=== PATIENT | female | born 1965 | race Caucasian/White ===

== ENCOUNTER 2016-10-28 11:38 | Observation (INO) ==
[2016-10-28] MEDS ORDERED: Piperacillin/Tazobactam 3.375 GM in D5% in Water (Mini-Bag+) 100 ML IVPB ONE (11:49)
[2016-10-28] MEDS ORDERED: 0.9 % Sodium Chloride 1,000 ML IVC ONE (11:49)
[2016-10-28] MEDS ORDERED: Vancomycin (wt based) 1,000 MG VIAL IV STA (11:49)
[2016-10-28] MEDS ORDERED: Vancomycin 1,750 MG in D5% in Water 500 ML IVPB ONE (11:53)
[2016-10-28] MEDS ORDERED: *HR* FentaNYL (PF) 100 MCG/2 ML VIAL IVP ONE (11:54)
--- NOTE | 2016-10-28 11:58 | Emergency Department Note ---
Disposition Clinical Impression: Cellulitis Qualifiers: Site of cellulitis: extremity Site of cellulitis of extremity: lower extremity Laterality: left Qualified Code(s): L03.116 - Cellulitis of left lower limb Disposition: Admitted As Inpatient Condition: Good Time of Disposition: 12:56 Extremity Problem HPI - General Chief complaint: ED Extremity Problem,Nontraumatic Stated complaint: LLE Seeping Swollen Inflamed Post Op Time Seen by Provider: 10/28/16 11:45 Source: patient, family Limitations: no limitations Nursing Notes Reviewed: Yes Vital Signs Reviewed: Yes - History of Present Illness HPI Narrative: 51-year-old male presents with seeping of her left lower leg. She had a procedure by Dr. Chou to remove varocosities in her left leg October 12. She was able to return to work 4 days after. She then noticed swelling as well as warmth to the leg. She was prescribed Keflex for possible cellulitis. States that do not improve in just 2 days ago she was given clindamycin. She reports continued seeping that is clear and sometimes bloody. She denies any fever, nausea or vomiting. She does believe the medication she takes upsets her stomach however. She denies any chest pain or difficulty breathing. She was also recently evaluated at [facility] ED with a performed a venous Doppler ultrasound did not find any deep vein thrombosis. Pain Scale: 2 - Related Data Home Medications Medication Instructions Recorded Confirmed Albuterol Sulfate [Ventolin Hfa] 2 puff IH Q4H PRN 10/12/16 10/28/16 Aspirin [Lo-Dose Aspirin EC] 81 mg PO DAILY 10/12/16 10/28/16 Budesonide/Formoterol 80/4.5 2 puff IH BID 10/12/16 10/28/16 [Symbicort 80/4.5] Escitalopram [Lexapro] 10 mg PO DAILY 10/12/16 10/28/16 Fluticasone Propionate Nasal 50 mcg NS DAILY PRN 10/12/16 10/28/16 [Flonase] Furosemide [Lasix] 20 mg PO DAILY 10/12/16 10/28/16 Ipratropium/Albuterol Neb [Duoneb] 3 ml IH Q6HR PRN 10/12/16 10/28/16 Losartan [Cozaar] 25 mg PO DAILY 10/12/16 10/28/16 [place]-3/Dha/Epa/Fish Oil [[place]-3 1,000 mg PO DAILY 10/12/16 10/28/16 Fish Oil 1,000 mg Sfgl] Omeprazole [PriLOSEC] 20 mg PO DAILY 10/12/16 10/28/16 Saccharomyces Boulardii [Probiotic] 250 mg PO DAILY 10/12/16 10/28/16 diazePAM [Valium] 5 mg PO BID PRN 10/12/16 10/28/16 OxyCODONE/APAP 5/325 [Percocet 1 tab PO Q4HR PRN 10/28/16 10/28/16 5/325 MG] Allergies Allergy/AdvReac Type Severity Reaction Status Date / Time lamotrigine [From Lamictal] Allergy Swelling Verified 07/07/16 08:38 of Lip/Tongue/Throat levetiracetam [From Keppra] Allergy Rash Verified 10/28/16 13:19 phenytoin [From Dilantin] Allergy Rash Verified 10/28/16 13:19 adhesive tape AdvReac Rash Verified 10/28/16 16:57 All systems ED: reviewed and negative except as stated. Constitutional: Denies: fever, chills Cardiovascular: Denies: chest pain Respiratory: Denies: dyspnea Gastrointestinal: Denies: abdominal pain, nausea, vomiting Integumentary: Reports: rash, lesions Neurological: Denies: headache Past Medical History - Past Medical History Attestation: Yes The following information was validated with the patient. Source: patient Medical history: Reports: asthma, seizures Surgical history: Reports: appendectomy, cholecystectomy, hysterectomy, other Psychiatric history: Reports: no psych history BARREL LINER history: Reports: non-contributory - Social History Smoking Status: Current every day smoker Smokeless Tobacco Status: No Alcohol use: Reports: none Drug use: Reports: none Physical Exam - General Limitations: no limitations General appearance: alert, in no apparent distress - Head Head exam: atraumatic, normocephalic, normal inspection - Chest Chest inspection: Present: normal inspection, symmetric chest wall rise - Respiratory Respiratory exam: Present: normal lung sounds bilaterally. Absent: respiratory distress, wheezes - Cardiovascular Cardiovascular exam: Present: regular rate, normal rhythm, normal heart sounds - Expanded Cardiovascular Exam Peripheral pulses: 2+: dorsalis pedis (R), dorsalis pedis (L) - Abdominal Exam Abdominal exam: Present: soft, Non-Tender, normal bowel sounds. Absent: tenderness, distention, guarding, rebound, rigidity - Extremities Exam Extremities exam: Present: full ROM, tenderness (Left medial distal 1/3 lower leg), normal capillary refill. Absent: pedal edema, calf tenderness - Expanded Lower Extremity Exam 1 - 2 cm incisional scabbing with Steri-Strips to place no induration or warmth 2 - Another 2 cm incision with scabbing there is some surrounding erythema and tenderness, no fluctuance or induration. Neurovascular/Tendon exam: Present: normal capillary refill - Neurological Exam Neurological exam: Present: alert, oriented X3 - Psychiatric Psychiatric exam: Present: anxious - Skin Skin exam: Present: warm, dry, normal color, erythema - Expanded Skin Exam Type of lesion: Present: other (incision to left lower leg) Course Course Narrative: 51-year-old female presents with pain and swelling to her left lower leg. She reports clear discharge for the past several days. She has been recently treated for cellulitis with clindamycin and Keflex. Patient denies any fevers. Review of her vitals she is afebrile and appears in no acute distress. Her erythema is not impressive is localized to one of her incisional sites. There is scabbing to both sites Steri-Strips are still in place. Good peripheral pulses bilaterally. No fluctuance or induration. Patient has filled outpatient cellulitis treatment. Will check basic labs, blood cultures, and Vanc/Zosyn. - Reevaluation(s) Reevaluation #1: Labs are unremarkable. Normal lactate 1.6. Patient was given fentanyl for pain. Started on empiric antibiotics. Impression is cellulitis of the left lower leg failed outpatient therapy. Patient will be admitted to vascular surgery. - Consultations Consultation #1: Spoke to Dr. Jack who is covering for vascular surgery, okay to admit for cellulitis held outpatient therapy. Please call him for further orders. Time: 12:55 Vital Signs Temperature 98.2 F 10/28/16 11:40 Pulse Rate 87 10/28/16 11:40 Respiratory Rate 16 10/28/16 11:40 Blood Pressure 150/78 10/28/16 11:40 O2 Sat by Pulse Oximetry 98 10/28/16 11:40 Temperature 98.2 F 10/28/16 19:54 Pulse Rate 58 10/28/16 19:54 Respiratory Rate 16 10/28/16 19:54 Blood Pressure 123/80 10/28/16 19:54 O2 Sat by Pulse Oximetry 97 10/28/16 19:54 Oxygen Delivery Oxygen Delivery Room Air Extremity Problem, Nontraumati - Medical Records Medical records reviewed: Yes I reviewed the patient's medical records. - Lab Data Lab results reviewed: Yes I reviewed the patient's lab results. Result diagrams: 10/28/16 12:14 10/28/16 12:14 Lab Results 10/28/16 10/28/16 10/28/16 Range/Units 12:14 12:14 12:14 WBC 7.4 (4.3-11.1) K/mcL RBC 4.42 (3.82-4.97) M/mcL Hgb 13.4 (11.5-15.4) g/dL Hct 39.4 (35.3-44.9) % MCV 89.1 (83.0-100.0) fL MCH 30.3 (28.0-33.3) pg MCHC 34.0 (31.6-35.5) g/dL RDW 13.0 (11.5-14.5) % Plt Count 214 (140-400) K/mcL MPV 10.4 (9.4-12.4) fL Immature Gran % 0.3 (0-4) % Seg Neutrophils % 42.1 % Lymphocytes % 45.3 % Monocytes % 6.5 % Eosinophils % 5.3 % Basophils % 0.5 % Neutrophils # 3.1 (1.6-8.9) K/mcL Lymphocytes # 3.3 (0.6-4.6) K/mcL Monocytes # 0.5 (0.0-1.3) K/mcL Eosinophils # 0.4 (0.0-0.6) K/mcL Basophils # 0.0 (0.0-0.2) K/mcL Sodium 143 (136-145) mEq/L Potassium 3.7 (3.5-4.5) mEq/L Chloride 107 (98-109) mEq/L Carbon Dioxide 27 (19-29) mEq/L BUN 14 (7-20) mg/dL Creatinine 0.87 (0.57-1.11) mg/dL Est GFR ( Amer) > 60 (> 60) Est GFR (Non-Af Amer) > 60 (> 60) BUN/Creatinine Ratio 16 (6-26) Glucose 98 (70-99) mg/dL Calculated Osmolality 296 (280-300) Lactic Acid 1.6 (0.5-2.2) mmol/L Calcium 9.1 (8.6-10.8) mg/dL Attestation Statement - Attestation Attestation: I examined this patient and my medical decision-making was reviewed with the WEBSITE PROJECT MANAGER/PA/Advanced Practice Nurse/Resident Physician. I agree with the documented findings, disposition and treatment plan as described except to the extent set forth below. Patient in emergency department with a left leg infection. Patient status post vein stripping October [address] Chou. She states she has been on Keflex and now clindamycin. States is not getting better. It is painful and it seeping. She was told on Saturday come to the ER on Saturday if it was not better. Exam shows wounds on the left lubin. There are 2 of them. Steri-Strips are still in place. No seeping visualized. Erythema surrounding the inferior wound. Plan. IV antibiotics. Admit. Afebrile normal white count.
[2016-10-28 12:23] LABS: Basophils % 0.5 %; Eosinophils # 0.4 K/mcL (0.0-0.6); Eosinophils % 5.3 %; Hematocrit 39.4 % (35.3-44.9); Hemoglobin 13.4 g/dL (11.5-15.4); Immature Granulocytes % 0.3 % (0-4); Lymphocytes # 3.3 K/mcL (0.6-4.6); Lymphocytes % 45.3 %; Mean Corpuscular Hemoglobin 30.3 pg (28.0-33.3); Mean Corpuscular Volume 89.1 fL (83.0-100.0); Mean Platelet Volume 10.4 fL (9.4-12.4); Monocytes # 0.5 K/mcL (0.0-1.3); Monocytes % 6.5 %; Neutrophils # 3.1 K/mcL (1.6-8.9); Platelet Count 214 K/mcL (140-400); Red Blood Count 4.42 M/mcL (3.82-4.97); Segmented Neutrophils % 42.1 %
[2016-10-28 12:36] LABS: BUN/Creatinine Ratio 16 (6-26); Blood Urea Nitrogen 14 mg/dL (7-20); Calcium 9.1 mg/dL (8.6-10.8); Carbon Dioxide 27 mEq/L (19-29); Chloride 107 mEq/L (98-109); Glucose 98 mg/dL (70-99); Osmolality,Calculated 296 (280-300); Potassium 3.7 mEq/L (3.5-4.5); Sodium 143 mEq/L (136-145); eGFR For African Americans > 60 (> 60); eGFR For Non-African Americans > 60 (> 60)
--- NOTE | 2016-10-28 16:56 | Vascular/Endovascular H&P ---
Date of Encounter: 10/28/16 Time of Encounter: 16:30 Assessment and Plan (1) Cellulitis Current Visit: Yes Status: Acute recurrent cellulitis and swelling after stab phlebectomy. She will be treated with aggressive leg elevation and antibiotic Qualifiers: Site of cellulitis: extremity Site of cellulitis of extremity: lower extremity Laterality: left Qualified Code(s): L03.116 - Cellulitis of left lower limb History of Present Illness Chief complaint: recurrent leg swelling HPI: Ms. Davis is a 51 year old female we will underwent stab phlebectomyon October 12. She returned to work and develoed recurrent leg swelling despite the useof extrinsic compression garments She has had recurrent erythema and breakdown of her distal wound on the left leg. This is been treated with 2 courses of oral antibiotics.she now presents with recurrent leg and erythema. She denies shakes chills or feve Past Med Surg Social Fam HX - Past Medical History Medical history: asthma, seizures, other Psychiatric history: no psych history - Past Surgical History Surgical History: appendectomy, cholecystectomy, hysterectomy, other - Social History Smoking Status: Current every day smoker Packs per day: .5 Smokeless Tobacco Status: No Alcohol use: none Drug use: none Medications and Allergies Albuterol Sulfate [Ventolin Hfa] 2 puff IH Q4H PRN 10/12/16 [History] Aspirin [Lo-Dose Aspirin EC] 81 mg PO DAILY 10/12/16 [History] Budesonide/Formoterol 80/4.5 [Symbicort 80/4.5] 2 puff IH BID 10/12/16 [History ] Escitalopram [Lexapro] 10 mg PO DAILY 10/12/16 [History] Fluticasone Propionate Nasal [Flonase] 50 mcg NS DAILY PRN 10/12/16 [History] Furosemide [Lasix] 20 mg PO DAILY 10/12/16 [History] Ipratropium/Albuterol Neb [Duoneb] 3 ml IH Q6HR PRN 10/12/16 [History] Losartan [Cozaar] 25 mg PO DAILY 10/12/16 [History] [place]-3/Dha/Epa/Fish Oil [[place]-3 Fish Oil 1,000 mg Sfgl] 1,000 mg PO DAILY [History] Omeprazole [PriLOSEC] 20 mg PO DAILY 10/12/16 [History] Saccharomyces Boulardii [Probiotic] 250 mg PO DAILY 10/12/16 [History] diazePAM [Valium] 5 mg PO BID PRN 10/12/16 [History] OxyCODONE/APAP 5/325 [Percocet 5/325 MG] 1 tab PO Q4HR PRN 10/28/16 [History] Allergies lamotrigine [From Lamictal] Allergy (Verified 07/07/16 08:38) Swelling of Lip/Tongue/Throat levetiracetam [From Keppra] Allergy (Verified 10/28/16 13:19) Rash phenytoin [From Dilantin] Allergy (Verified 10/28/16 13:19) Rash adhesive tape Adverse Reaction (Verified 10/28/16 16:57) Rash All Systems Review: A 10-system review of systems was performed and is negative for pertinent findings except as documented above in the HPI. Exam Vital Signs, Last 4 Hours Temp Pulse Resp BP Pulse Ox 10/28/16 14:36 98.1 F 62 14 115/65 96 10/28/16 13:59 16 110/85 General: Present: No Apparent Distress HEENT: Present: Trachea midline, Pupils equal Cardiac: Present: Reg Rate and Rhythm, Normal S1 and S2, No Murmur Lungs: Present: Normal Breath Sounds, No Wheeze, Rales, Rhonchi Neuro: Present: Alert and responsive, No focal deficits noted Abdomen: Present: Soft, Non-tender Vascular: Present: Normal capillary refill, Pulse, normal Skin: Present: Wound/ulcer(s) (left lower extremity incisions areintact. There is eschar on the distal extremity incision) Results 10/28/16 12:14 10/28/16 12:14
[2016-10-28] MEDS ORDERED: Ondansetron 4 MG/2 ML VIAL IVP PRN (17:19)
[2016-10-28] MEDS ORDERED: diazePAM 5 MG TABLET PO PRN (17:19)
[2016-10-28] MEDS ORDERED: *HR* OxyCODONE/APAP 5/325 TABLET PO PRN (17:19)
[2016-10-28] MEDS ORDERED: Ipratropium/Albuterol Neb 3 ML IH PRN (17:19)
[2016-10-28] MEDS: *HR* OxyCODONE/APAP 5/325 TABLET PO PRN (20:04)
[2016-10-28] MEDS: Budesonide/Formoterol 80/4.5 MDI IH SCH (20:21)
[2016-10-28] MEDS: 0.9 % Sodium Chloride 1,000 ML IVC SCH (21:18)
[2016-10-29] MEDS: Budesonide/Formoterol 80/4.5 MDI IH SCH (07:45)
[2016-10-29] MEDS ORDERED: Aspirin Enteric Coated 81 MG Tablet PO SCH (09:00)
[2016-10-29] MEDS ORDERED: Furosemide 20 MG TABLET PO SCH (09:00)
[2016-10-29] MEDS: *HR* OxyCODONE/APAP 5/325 TABLET PO PRN (09:42)
[2016-10-29] MEDS: 0.9 % Sodium Chloride 1,000 ML IVC SCH (09:45)
--- NOTE | 2016-10-29 11:00 | Discharge Summary ---
Date of Encounter: 10/29/16 Time of Encounter: 10:40 - Discharge Medications Prescriptions: Doxycycline 100 mg PO BID #14 capsule Home Medications: Albuterol Sulfate [Ventolin Hfa] 2 puff IH Q4H PRN 10/12/16 [History] Aspirin [Lo-Dose Aspirin EC] 81 mg PO DAILY 10/12/16 [History] Budesonide/Formoterol 80/4.5 [Symbicort 80/4.5] 2 puff IH BID 10/12/16 [History ] Escitalopram [Lexapro] 10 mg PO DAILY 10/12/16 [History] Fluticasone Propionate Nasal [Flonase] 50 mcg NS DAILY PRN 10/12/16 [History] Furosemide [Lasix] 20 mg PO DAILY 10/12/16 [History] Ipratropium/Albuterol Neb [Duoneb] 3 ml IH Q6HR PRN 10/12/16 [History] Losartan [Cozaar] 25 mg PO DAILY 10/12/16 [History] [place]-3/Dha/Epa/Fish Oil [[place]-3 Fish Oil 1,000 mg Sfgl] 1,000 mg PO DAILY [History] Omeprazole [PriLOSEC] 20 mg PO DAILY 10/12/16 [History] Saccharomyces Boulardii [Probiotic] 250 mg PO DAILY 10/12/16 [History] diazePAM [Valium] 5 mg PO BID PRN 10/12/16 [History] OxyCODONE/APAP 5/325 [Percocet 5/325 MG] 1 tab PO Q4HR PRN 10/28/16 [History] Doxycycline 100 mg PO BID #14 capsule 10/29/16 [Rx] Allergies/Adverse Reactions: Allergies lamotrigine [From Lamictal] Allergy (Verified 07/07/16 08:38) Swelling of Lip/Tongue/Throat levetiracetam [From Keppra] Allergy (Verified 10/28/16 13:19) Rash phenytoin [From Dilantin] Allergy (Verified 10/28/16 13:19) Rash adhesive tape Adverse Reaction (Verified 10/28/16 16:57) Rash Date of admission: 10/28/16 13:18 Primary care physician: Mendy Badillo - Patient Status Disposition: Home, Self-Care Condition: Good Overall status at discharge: patient is back to baseline - Discharge Instructions Follow Up With: Zheng Chou MD [Partnered Physician] - 11/12/16 1:00 pm Additional Instructions: Call Dr. Chou at [phone] with questions or concerns. - Diet and Activity Activity: increase activity as tolerated Diet: advance to your usual diet - Hospital Course Hospital course: Ms. Davis is a 51 year old female - Time Spent with Patient Total time spent providing and/or coordinating discharge services: Exam Vital Signs, Last 4 Hours Temp Pulse Resp BP Pulse Ox 10/29/16 07:59 97.7 F 52 18 126/62 97 10/29/16 07:45 16 98
[2016-10-29 12:00] VITALS: BP 137/86
[2016-10-29] MEDS ORDERED: *HR* Heparin 5,000 UNIT/ML VIAL SQ SCH (17:04)
== END 2016-10-29 12:58 | disposition home or self-care (01) ==
LOC: EMEROO 11:38 → INTOOBSV 13:18 → 3ANU 13:18
PROVIDERS: ADMIT Surgery; ATTEND Surgery